=== PATIENT | female | born 1985 | race Caucasian/White ===

== ENCOUNTER 2020-03-20 09:50 | Emergency (ER) | payer MEDICAID ==
[~2020-03-20] VITALS: Ht 154.9 cm; Wt 99.8 kg
[2020-03-20 10:04] VITALS: BP_SYST 145
[2020-03-20] MEDS ORDERED: MORPHINE 4 MG/ML INJ. SYRINGE IVP ONE ×2 (10:30→12:00)
[2020-03-20] MEDS ORDERED: ONDANSETRON HCL 4 MG/2 ML VIAL IVP ONE ×2 (10:30→11:00)
[2020-03-20] MEDS ORDERED: NACL 0.9% 1,000 ML IV ONE ×2 (10:30→11:00)
[2020-03-20] MEDS ORDERED: LORazepam 1 MG TABLET PO ONE (10:45)
[2020-03-20] MEDS ORDERED: ONDANSETRON HCL 4 MG/2 ML VIAL ONE (10:47)
[2020-03-20] MEDS ORDERED: MORPHINE 4 MG/ML INJ. SYRINGE ONE ×2 (11:04→11:56)
[2020-03-20 11:07] LABS: BASOPHILS % (AUTO) 0.3 % (0.0-2.0); LYMPHOCYTES % (AUTO) 8.5 % (20.5-51.5)
[2020-03-20] MEDS ORDERED: LORazepam 2 MG/ML VIAL ONE (11:45)
[2020-03-20] MEDS ORDERED: LORazepam 2 MG/ML VIAL IVP ONE (11:45)
[2020-03-20 11:54] LABS: HEMATOCRIT 39.9 % (36-48); HEMOGLOBIN 13.7 g/dL (12.0-16.0); LYMPHOCYTES # (AUTO) 1.1 K/uL (1.0-5.5); MEAN CORPUSCULAR HEMOGLOBIN 32 pg (27-31); MEAN CORPUSCULAR HGB CONC 34 % (32-36); MEAN CORPUSCULAR VOLUME 93 fL (79.0-98.0); MONOCYTES # (AUTO) 0.6 K/uL (0.0-1.0); MONOCYTES % (AUTO) 4.6 % (1.7-9.3); NEUTROPHILS # (AUTO) 11.6 K/uL (1.8-7.7); NEUTROPHILS % (AUTO) 86.6 % (40.0-70.0); PLATELET COUNT (AUTO) 369 K/uL (130-430); RED BLOOD CELL COUNT(AUTO) 4.29 MIL/uL (4.2-6.2); RED CELL DISTRIBUTION WIDTH 13.6 % (9.0-15.0); WHITE BLOOD COUNT (AUTO) 13.4 K/uL (4.8-10.8)
[2020-03-20 11:59] LABS: CALCIUM 8.8 mg/dL (8.4-11.0); CREATININE 1.01 mg/dL (0.55-1.30)
[2020-03-20 12:05] LABS: ALBUMIN 3.7 g/dL (3.4-4.8); TOTAL BILIRUBIN 0.4 mg/dL (0.0-1.0)
[2020-03-20 12:07] LABS: POTASSIUM 2.6 mmol/L (3.5-5.1)
[2020-03-20] MEDS ORDERED: MAGNESIUM SULFATE 1 GM/2 ML VIAL IVP ONE (12:15)
[2020-03-20] MEDS ORDERED: DIPHENHYDRAMINE INJ 50 MG/ML VIAL IVP ONE (12:15)
[2020-03-20] MEDS ORDERED: KCL 40 mEq in 100 mL (PREMIX) 100 ML IV ONE (12:15)
[2020-03-20] MEDS ORDERED: METOCLOPRAMIDE HCL 10 MG/2 ML VIAL IVP ONE (12:15)
[2020-03-20 12:19] LABS: BILIRUBIN,URINE 1+ (NEGATIVE); BLOOD, URINE 3+ (NEGATIVE); COLOR,URINE YELLOW (YELLOW); GLUCOSE,URINE NEGATIVE (NEGATIVE); KETONES,URINE 3+ (NEGATIVE); LEUKOCYTE ESTERASE ,URINE NEGATIVE (NEGATIVE); NITRITE, URINE NEGATIVE (NEGATIVE); PH,URINE 5.5 (5.0-8.0); PROTEIN URINE TRACE (NEGATIVE); UROBILINOGEN,URINE 0.2 (0.2-1.0)
[2020-03-20 12:25] LABS: CLARITY/URINE SLIGHTLY HAZY (CLEAR)
[2020-03-20] MEDS ORDERED: METOCLOPRAMIDE HCL 10 MG/2 ML VIAL ONE (12:34)
[2020-03-20] MEDS ORDERED: MAGNESIUM SULFATE/D5W 100 ML IV ONE (12:36)
[2020-03-20] MEDS ORDERED: KCL 20 mEq in 100 mL (PREMIX) 0 ML IV ONE (12:36)
[2020-03-20 12:59] LABS: RBC,URINE 20-50 /HPF (0-3)
[2020-03-20 13:00] LABS: BACTERIA,URINE RARE /HPF (None Seen); WBC,URINE 0-3 /HPF (0-3); YEAST,URINE Few /HPF (None Seen)
[2020-03-20 13:34] VITALS: BP_SYST 139
== END 2020-03-20 13:35 | disposition home or self-care (01) ==
LOC: SED 09:50
DX: R11.2 Nausea with vomiting, unspecified (principal); Z88.6 Allergy status to analgesic agent
CPT/HCPCS: 36415; 74177; 76376; 80053; 81000; 83690; 85025; 87086; 96361; 96374; 96375; 99285; J1200; J2060; J2270; J2405; J2765; J7030; Q9967; J3480